=== PATIENT | male | born 1945 | race Caucasian/White ===

== ENCOUNTER 2021-08-26 08:08 | Emergency (ER) | payer MEDICARE, OTHER ==
[~2021-08-26] VITALS: Ht 177.8 cm; Wt 90.7 kg
--- NOTE | 2021-08-26 08:27 | ED Cardiac General ---
History of Present Illness General Stated Complaint: HIGH BP 259/126 Source: patient Exam Limitations: no limitations History of Present Illness Date Seen by Provider: August 26, 2021 Time Seen by Provider: 08:15 Initial Comments The patient to the ER by private conveyance with his and chief complaint that he has been out of his medications for the past 2 weeks metoprolol and atorvastatin. He stopped taking his amlodipine 10 mg daily. He has noticed for the past couple days he felt little tired so he checked his blood pressure and it was high 259/126. He is not having any chest pain nausea shortness of air. He does not have any history of coronary disease or cardiac catheterizations. He just moved here from [place] and does not have a primary care provider yet. He has a history of 2 TIAs. Allergies and Home Medications Allergies Coded Allergies: No Known Drug Allergies (Unverified , 08/26/21) Patient Home Medication List Home Medication List Reviewed: Yes Review of Systems Review of Systems Constitutional: No chills, No diaphoresis EENTM: No Blurred Vision, No Double Vision Respiratory: Denies Cough, Denies Shortness of Air Cardiovascular: Denies Chest Pain, Denies Lightheadedness Gastrointestinal: Denies Abdominal Pain, Denies Constipated, Denies Nausea Genitourinary: Denies Burning, Denies Discharge Musculoskeletal: No back pain, No neck pain Skin: No change in color, No rash All Other Systems Reviewed Negative Unless Noted: Yes Past Jiqmjzj-Wlhnmi-Rjrtku Hx Patient Social History Tobacco Use?: No Use of E-Cig and/or Vaping dev: No Substance use?: No Physical Exam Vital Signs Vital Signs - First Documented 08/26/21 08:15 Temp 36.3 Pulse 73 Resp 16 B/P (MAP) 260/124 (169) Pulse Ox 94 O2 Delivery Room Air Capillary Refill : Height, Weight, BMI Height: '" Weight: lbs. oz. kg; BMI Method: General Appearance: No Apparent Distress, WD/WN HEENT: PERRL/EOMI, TMs Normal, Normal ENT Inspection, Pharynx Normal, Moist Mucous Membranes Neck: Full Range of Motion, Normal Inspection Respiratory: Lungs Clear, Normal Breath Sounds, No Accessory Muscle Use, No Respiratory Distress Cardiovascular: Regular Rate, Rhythm, No Edema, Normal Peripheral Pulses Gastrointestinal: Normal Bowel Sounds, No Organomegaly, Soft Extremity: Normal Capillary Refill, Normal Inspection, No Pedal Edema Neurologic/Psychiatric: Alert, Oriented x3, family practitioner II-XII Norm as Tested Skin: Normal Color, Warm/Dry Progress/Results/Core Measures Results/Orders Lab Results Laboratory Tests Test 08/26/21 08:24 Range/Units White Blood Count 6.5 4.3-11.0 10^3/uL Red Blood Count 4.82 4.30-5.52 10^6/uL Hemoglobin 13.4 13.3-17.7 g/dL Hematocrit 39 L 40-54 % Mean Corpuscular Volume 82 80-99 fL Mean Corpuscular Hemoglobin 28 25-34 pg Mean Corpuscular Hemoglobin Concent 34 32-36 g/dL Red Cell Distribution Width 13.2 10.0-14.5 % Platelet Count 158 130-400 10^3/uL Mean Platelet Volume 10.0 9.0-12.2 fL Immature Granulocyte % (Auto) 0 % Neutrophils (%) (Auto) 56 42-75 % Lymphocytes (%) (Auto) 32 12-44 % Monocytes (%) (Auto) 8 0-12 % Eosinophils (%) (Auto) 3 0-10 % Basophils (%) (Auto) 1 0-10 % Neutrophils # (Auto) 3.6 1.8-7.8 10^3/uL Lymphocytes # (Auto) 2.0 1.0-4.0 10^3/uL Monocytes # (Auto) 0.5 0.0-1.0 10^3/uL Eosinophils # (Auto) 0.2 0.0-0.3 10^3/uL Basophils # (Auto) 0.0 0.0-0.1 10^3/uL Immature Granulocyte # (Auto) 0.0 0.0-0.1 10^3/uL Sodium Level 137 135-145 MMOL/L Potassium Level 4.0 3.6-5.0 MMOL/L Chloride Level 104 98-107 MMOL/L Carbon Dioxide Level 22 21-32 MMOL/L Anion Gap 11 5-14 MMOL/L Blood Urea Nitrogen 15 7-18 MG/DL Creatinine 1.08 0.60-1.30 MG/DL Estimat Glomerular Filtration Rate 70 BUN/Creatinine Ratio 14 Glucose Level 159 H 70-105 MG/DL Calcium Level 9.2 8.5-10.1 MG/DL Corrected Calcium 9.0 8.5-10.1 MG/DL Total Bilirubin 0.5 0.1-1.0 MG/DL Aspartate Amino Transf (AST/SGOT) 43 H 5-34 U/L Alanine Aminotransferase (ALT/SGPT) 55 0-55 U/L Alkaline Phosphatase 128 40-136 U/L Troponin I < 0.028 <0.028 NG/ML Total Protein 8.4 H 6.4-8.2 GM/DL Albumin 4.3 3.2-4.5 GM/DL My Orders Orders - ISABEL LAU Continuous Ekg Monitoring (08/26/21 08:13) Ekg Tracing (08/26/21 08:13) Cbc With Automated Diff (08/26/21 08:23) Comprehensive Metabolic Panel (08/26/21 08:23) Troponin I Olu (08/26/21 08:23) Chest 1 View, Ap/Pa Only (08/26/21 08:23) Labetalol Injection (Normodyne Injection (08/26/21 08:30) Labetalol Injection (Normodyne Injection (08/26/21 08:31) Medications Given in ED Current Medications Medications Dose Ordered Sig/Dana Route Start Time Stop Time Status Last Admin Dose Admin Labetalol HCl 20 mg ONCE ONCE IV 08/26/21 08:30 08/26/21 08:31 DC 08/26/21 08:34 20 MG Vital Signs/I&O 08/26/21 08:15 Temp 36.3 Pulse 73 Resp 16 B/P (MAP) 260/124 (169) Pulse Ox 94 O2 Delivery Room Air Progress Progress Note #1: Time: 08:28 Progress Note Presenting blood pressure is +++/124. We will give him some labetalol 20 mg IV and check some labs including an EKG and troponin as well as a chest x-ray. We will get him set up with refills of his medications as appropriate and have him get some follow-up. Progress Note #2: Time: 09:18 Progress Note Patient blood pressure has significantly improved 165/82. He is still asymptomatic. Were going to let him go home with some prescriptions. Initial ECG Impression Date: August 26, 2021 Initial ECG Impression Time: 08:20 Initial ECG Rate: 74 Initial ECG Rhythm: Normal Sinus Initial ECG Intervals: Normal Initial ECG Impression: Normal Initial ECG Comparisson: No Previous ECG Available Comment Normal sinus rhythm without clinically relevant ST elevation or depression. Diagnostic Imaging Diagonstic Imaging: Xray Plain Films/CT/US/NM/MRI: chest Comments [facility] [place], [place] NAME: ROBERTO ROMANO [facility] REC#: [id number] PT STATUS: REG ER : 1945 PHYSICIAN: ISABEL LAU MD ADMIT DATE: 08/26/21/ER Signed Date of Exam:08/26/21 CHEST 1 VIEW, AP/PA ONLY Indication: Hypertension with headache, dizziness and fatigue Single AP view of chest is obtained. COMPARISON: No previous study is available for comparison at this time. FINDINGS: Heart size and pulmonary vasculature are within normal limits, and the lungs are clear, bilaterally. IMPRESSION: Unremarkable chest. Dictated by: Dictated on workstation # [id number] Dict: 08/26/21 0859 Trans: 08/26/21 09 [id number] Interpreted by: FABIANA CERDA MD Electronically signed by: FABINAA CERDA MD 08/26/21899 Reviewed: Reviewed by De Departure Impression Primary Impression: Asymptomatic hypertensive urgency Disposition: 01 HOME, SELF-CARE Condition: Stable Departure-Patient Inst. Decision time for Depature: 09:21 Referrals: RASHAAD RUTH MD [facility] NO,LOCAL PHYSICIAN (PCP) Primary Care Physician Patient Instructions: High Blood Pressure (DC), LOCAL PHYSICIAN LIST Add. 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 Start taking your metoprolol today. Follow-up with cardiology, Dr. Ruth if you need help managing your blood pressure. Make plans to establish care with a primary care doctor. Return to the ER for chest pain, shortness of air or other worrisome symptoms. Scripts Metoprolol Tartrate (Metoprolol Tartrate) 50 Mg Tablet 50 MG PO BID for 30 Days, #60 TAB 0 Refills Prov: ISABEL LAU 08/26/21 Atorvastatin Calcium (Atorvastatin Calcium) 20 Mg Tablet 20 MG PO HS for 30 Days, #30 TAB 0 Refills Prov: ISABEL LAU 08/26/21 Copy Copies To 1: RASHAAD RUTH MD [facility] ISABEL LAU August 26, 2021 08:27
[2021-08-26] MEDS ORDERED: LABETALOL HCL 20 MG/4 ML VIAL IV ONE (08:30)
[2021-08-26] MEDS ORDERED: LABETALOL HCL 20 MG/4 ML VIAL ONE (08:31)
[2021-08-26 08:32] LABS: BASOPHILS % (AUTO) 1 % (0-10); EOSINOPHILS # (AUTO) 0.2 10^3/uL (0.0-0.3); EOSINOPHILS % (AUTO) 3 % (0-10); HEMATOCRIT 39 % (40-54); HEMOGLOBIN 13.4 g/dL (13.3-17.7); LYMPHOCYTES % (AUTO) 32 % (12-44); MEAN CORPUSCULAR HEMOGLOBIN 28 pg (25-34); MEAN CORPUSCULAR HGB CONC 34 g/dL (32-36); MEAN CORPUSCULAR VOLUME 82 fL (80-99); MONOCYTES # (AUTO) 0.5 10^3/uL (0.0-1.0); MONOCYTES % (AUTO) 8 % (0-12); NEUTROPHILS # (AUTO) 3.6 10^3/uL (1.8-7.8); NEUTROPHILS % (AUTO) 56 % (42-75); PLATELET COUNT 158 10^3/uL (130-400); WHITE BLOOD COUNT 6.5 10^3/uL (4.3-11.0)
[2021-08-26 08:42] LABS: ALBUMIN 4.3 GM/DL (3.2-4.5)
[2021-08-26 08:43] LABS: CHLORIDE 104 MMOL/L (98-107); SODIUM 137 MMOL/L (135-145)
[2021-08-26 08:44] LABS: CALCIUM 9.2 MG/DL (8.5-10.1)
[2021-08-26 08:45] LABS: GLUCOSE 159 MG/DL (70-105); TOTAL PROTEIN 8.4 GM/DL (6.4-8.2)
[2021-08-26 08:46] LABS: CARBON DIOXIDE 22 MMOL/L (21-32)
[2021-08-26 08:47] LABS: BILIRUBIN,TOTAL 0.5 MG/DL (0.1-1.0)
[2021-08-26 08:48] LABS: ALKALINE PHOSPHATASE 128 U/L (40-136)
[2021-08-26 08:49] LABS: CREATININE SERUM 1.08 MG/DL (0.60-1.30); GFR ESTIMATED 70
[2021-08-26 08:50] LABS: BUN/CREATININE RATIO 14
[2021-08-26 08:52] LABS: ALANINE AMINOTRANSFERASE 55 U/L (0-55)
--- NOTE | 2021-08-26 09:01 | Diagnostic Imaging Report ---
Indication: Hypertension with headache, dizziness and fatigue Single AP view of chest is obtained. COMPARISON: No previous study is available for comparison at this time. FINDINGS: Heart size and pulmonary vasculature are within normal limits, and the lungs are clear, bilaterally. IMPRESSION: Unremarkable chest. Dictated by: Dictated on workstation # [id number]
[2021-08-26] MEDS ORDERED: ATOR20TA66 PO (09:24)
[2021-08-26] MEDS ORDERED: METO50TA15 PO (09:24)
[2021-08-26 09:55] VITALS: BP 172/95
== END 2021-08-26 09:55 | disposition home or self-care (01) ==
LOC: ER 08:09
DX: I16.0 Hypertensive urgency (principal); T46.1X6A Underdosing of calcium-channel blockers, initial encounter; T46.6X6A Underdosing of antihyperlipidemic and antiarteriosclerotic drugs, initial encounter; Z86.73 Personal history of transient ischemic attack (TIA), and cerebral infarction without residual deficits; Z91.14 Patient's other noncompliance with medication regimen
CPT/HCPCS: 36415; 71045; 80053; 84484; 85025; 93005

== ENCOUNTER 2021-12-08 09:48 | Emergency (ER) | payer MEDICARE ==
[~2021-12-08] VITALS: Ht 177 cm; Wt 90.2 kg
[~2021-12-08 09:48] MED LIST: ATOR20TA66 PO; METO50TA15 PO
--- NOTE | 2021-12-08 10:50 | ED General ---
General Chief Complaint: COVID19 Suspect/Confirmed Stated Complaint: COVID + Nursing Triage Note: PT PRESENTS TO ED VIA POV FROM HOME WITH COMPLAINTS OF RAPHAEL, FEVER, COUGH X 2 DAYS. PT TESTED POSITIVE OF COVID AT HOME TODAY. Source of Information: Patient Exam Limitations: No Limitations History of Present Illness Date Seen by Provider: Dec 08, 2021 Time Seen by Provider: 10:50 Initial Comments This is a 76-year-old male who presented to the ER via POV with complaints of headache, fever, chills, cough for the past 2 days. States yesterday his symptoms started when he woke, was evaluated at [facility] and had a negative COVID test at that time. They gave him a home test to repeat if his symptoms worsen. Through the night he developed 101 fever and his home COVID test was positive. States that he woke today feeling fine, minor headache. Has not taken anything for his headache at this time. He was in contact with the [facility] and they recommended he go to the ER as he has several comorbidities and higher risk for deterioration with COVID if positive. Patient states that he had COVID in April of this year and received monoclonal infusion at that time. Allergies and Home Medications Allergies Coded Allergies: No Known Drug Allergies (Unverified , 08/26/21) Patient Home Medication List Home Medication List Reviewed: Yes Atorvastatin Calcium (Atorvastatin Calcium) 20 Mg Tablet, 20 MG PO HS Prescribed by: ISABEL LAU on 08/26/21923 Metoprolol Tartrate (Metoprolol Tartrate) 50 Mg Tablet, 50 MG PO BID Prescribed by: ISABEL LAU on 08/26/21923 Review of Systems Review of Systems Constitutional: chills, dizziness, fever EENTM: no symptoms reported Respiratory: cough, phlegm, short of breath (upon awakening ) Cardiovascular: no symptoms reported Gastrointestinal: no symptoms reported Genitourinary: no symptoms reported Musculoskeletal: no symptoms reported Skin: no symptoms reported Psychiatric/Neurological: No Symptoms Reported Hematologic/Lymphatic: No Symptoms Reported Immunological/Allergic: no symptoms reported Past Hnumuzf-Pyiovu-Bkccko Hx Patient Social History Tobacco Use?: No Substance use?: No Alcohol Use?: No Pt feels they are or have been: No Past Medical History Surgery/Hospitalization HX: PMH: HTN Physical Exam Vital Signs Vital Signs - First Documented 12/08/21 10:19 Temp 36.8 Pulse 85 Resp 16 B/P (MAP) 162/95 (117) Pulse Ox 95 Capillary Refill : Less Than 3 Seconds Height, Weight, BMI Height: '" Weight: lbs. oz. kg; 28.00 BMI Method: General Appearance: No Apparent Distress, WD/WN Eyes: Bilateral Eye Normal Inspection, Bilateral Eye PERRL, Bilateral Eye EOMI HEENT: PERRL/EOMI, Normal ENT Inspection, Pharynx Normal Neck: Full Range of Motion Progress/Results/Core Measures Suspected Sepsis SIRS Temperature: Pulse: 85 Respiratory Rate: 16 Blood Pressure 162 /95 Mean: 117 Results/Orders Lab Results Laboratory Tests Test 12/08/21 10:49 Range/Units Influenza Type A (RT-PCR) Not Detected Not Detecte Influenza Type B (RT-PCR) Not Detected Not Detecte SARS-CoV-2 RNA (RT-PCR) Not Detected Not Detecte My Orders Orders - FABRICIO WALL HUMAN RESOURCES EXECUTIVE ASSISTANT Covid 19 Inhouse Test (12/08/21 10:49) Influenza A And B By Pcr (12/08/21 10:49) Chest 1 View, Ap/Pa Only (12/08/21 11:40) Vital Signs/I&O 12/08/21 10:19 Temp 36.8 Pulse 85 Resp 16 B/P (MAP) 162/95 (117) Pulse Ox 95 Capillary Refill : Less Than 3 Seconds Blood Pressure Mean: 117 Departure Impression Primary Impression: Community acquired pneumonia Disposition: 01 HOME, SELF-CARE Condition: Stable Departure-Patient Inst. Decision time for Depature: 11:55 Referrals: ASHOK SHAW MD (PCP/Family) Primary Care Physician Patient Instructions: Pneumonia, Adult ED Add. Discharge Instructions: Plan: 1. Follow up with your primary care provider next week. May take Tylenol as directed per package for fever, chills. 2. May take Albuterol 2 puffs every 4 hours as needed for shortness of air or wheezing. 3. Take antibiotics twice a day and complete full course even if you begin to feel better. 4. Your antibiotics may make you sensitive to the sun and cause you to burn easier, avoid direct sunlight. Wear hat/protection. 5. Return for any new, concerning, or worsening symptoms. All discharge instructions reviewed with patient and/or family. Voiced understanding. Scripts Albuterol Sulfate (VENTOLIN HFA) 1 Puff Puff 2 PUFF INH Q4H for 10 Days, #1 UNIT 0 Refills 1 PUFF = 90 MCG Prov: FABRICIO WALL HUMAN RESOURCES EXECUTIVE ASSISTANT 12/08/21 Doxycycline Hyclate (Doxycycline Hyclate) 100 Mg Tablet 100 MG PO BID for 7 Days, #14 TAB 0 Refills Prov: FABRICIO WALL HUMAN RESOURCES EXECUTIVE ASSISTANT 12/08/21 FABRICIO WALL HUMAN RESOURCES EXECUTIVE ASSISTANT Dec 08, 2021 10:50
--- NOTE | 2021-12-08 12:23 | Diagnostic Imaging Report ---
INDICATION: Cough. TIME OF EXAM: 11:59 AM Correlation is made with prior chest 08/26/2021. Heart size normal. There is some patchy infiltrate right mid to lower lung field consistent with pneumonia. Left lung is clear. There is no effusion or pneumothorax. IMPRESSION: Patchy right basilar pneumonia. Dictated by: Dictated on workstation # [id number]
[2021-12-08] MEDS ORDERED: DOXY100T2 PO (12:38)
[2021-12-08] MEDS ORDERED: RT-ALBUINH INH (12:43)
[2021-12-08] MEDS ORDERED: LIDOCAINE 1% INJ 20 ML VIAL INJ ONE (12:45)
[2021-12-08] MEDS ORDERED: cefTRIAXone 1,000 MG VIAL IM ONE (12:45)
[2021-12-08 13:03] VITALS: BP 130/76
== END 2021-12-08 13:03 | disposition home or self-care (01) ==
LOC: EDUNIT# 09:48 → ER 09:50
DX: J18.9 Pneumonia, unspecified organism (principal); Z20.822 Contact with and (suspected) exposure to COVID-19; Z28.310 Unvaccinated for COVID-19
CPT/HCPCS: 71045; 87636

== ENCOUNTER → 2022-01-27 | Outpatient (CLI) | payer MEDICARE ==
[~2022-01-27] MED LIST changes: +DOXY100T2 PO; +RT-ALBUINH INH
== END ==
LOC: PREOP 13:25
PROVIDERS: ATTEND Specialist
DX: Z01.818 Encounter for other preprocedural examination (principal)

== ENCOUNTER → 2022-02-10 | Outpatient (CLI) | payer MEDICARE | LOC: PREOP 11:50 | PROVIDERS: ATTEND Specialist | DX: Z01.818 Encounter for other preprocedural examination (principal) ==

== ENCOUNTER 2022-04-11 18:46 | Emergency (ER) | payer MEDICARE ==
[~2022-04-11] VITALS: Ht 177 cm; Wt 86.0 kg
[2022-04-11 19:52] LABS: BASOPHILS % (AUTO) 0 % (0-10); EOSINOPHILS # (AUTO) 0.2 10^3/uL (0.0-0.3); EOSINOPHILS % (AUTO) 3 % (0-10); HEMATOCRIT 38 % (40-54); HEMOGLOBIN 12.5 g/dL (13.3-17.7); LYMPHOCYTES # (AUTO) 1.5 10^3/uL (1.0-4.0); LYMPHOCYTES % (AUTO) 22 % (12-44); MEAN CORPUSCULAR HEMOGLOBIN 27 pg (25-34); MEAN CORPUSCULAR HGB CONC 33 g/dL (32-36); MEAN CORPUSCULAR VOLUME 81 fL (80-99); MEAN PLATELET VOLUME 9.7 fL (9.0-12.2); MONOCYTES # (AUTO) 0.5 10^3/uL (0.0-1.0); MONOCYTES % (AUTO) 7 % (0-12); NEUTROPHILS # (AUTO) 4.7 10^3/uL (1.8-7.8); NEUTROPHILS % (AUTO) 68 % (42-75); PLATELET COUNT 182 10^3/uL (130-400); WHITE BLOOD COUNT 6.9 10^3/uL (4.3-11.0)
[2022-04-11 20:03] LABS: FIBRIN DEGRADATION PRODUCTS 1.08 UG/ML (0.00-0.49); INR 0.9 (0.8-1.4); PROTHROMBIN TIME PATIENT 12.9 SEC (12.2-14.7)
[2022-04-11 20:07] LABS: ALBUMIN 4.4 GM/DL (3.2-4.5); BILIRUBIN,TOTAL 0.3 MG/DL (0.1-1.0); CALCIUM 9.3 MG/DL (8.5-10.1); CREATININE SERUM 1.25 MG/DL (0.60-1.30); MAGNESIUM 2.1 MG/DL (1.6-2.4); POTASSIUM 3.6 MMOL/L (3.6-5.0)
[2022-04-11 20:13] LABS: CREATINE KINASE MB 2.8 NG/ML (<6.6)
[2022-04-11 20:29] LABS: ERYTHROCYTE SEDIMENTATION RATE 36 MM/HR (0-30)
--- NOTE | 2022-04-11 20:31 | Diagnostic Imaging Report ---
EXAMINATION: Chest 1 view HISTORY: Dyspnea. Cough COMPARISON: 12/08/2021 FINDINGS: Heart size and pulmonary vasculature are normal. There are mild interstitial opacities within the lower lungs. No pleural effusion or pneumothorax. Degenerative changes of the thoracic spine. Osseous structures are otherwise intact. IMPRESSION: 1. Mild interstitial opacities within the lower lungs which can be ween with atelectasis, pulmonary edema, or atypical infection. Dictated by: Dictated on workstation # [id number]
--- NOTE | 2022-04-11 20:34 | ED General ---
General Chief Complaint: Cardiac/General Problems Stated Complaint: HIGH BP 179/100 - R EYE PAIN/SWELLING - COUGH - RAPHAEL Nursing Triage Note: PT BROUGHT TO ED FOR C/O RT EYE SWELLING AND HIGH BP. PER PT DENIES INJURY TO EYE. PT REPORTS HAVING HEADACHES FOR A COUPLE OF MONTHS. TODAY'S BP AT HOME WAS 179/100. PT AND SPOUSE AMB. TO ROOM 07. Source of Information: Patient (LETS DO ALL TALKING), Spouse ( DOES ALL TALKING FOR PT) History of Present Illness Date Seen by Provider: Apr 11, 2022 Time Seen by Provider: 19:35 Initial Comments PT ARRIVES VIA POV FROM HOME WITH PT WITH MULTIPLE COMPLAINTS. PCP: [facility] SODIUM METHYLATE OPERATOR: DR. REDDY Allergies and Home Medications Allergies Coded Allergies: No Known Drug Allergies (Unverified , 08/26/21) Patient Home Medication List Albuterol Sulfate (Ventolin Hfa) 1 Puff Puff, 2 PUFF INH Q4H Prescribed by: FABRICIO WALL on 12/08/21 1243 Atorvastatin Calcium (Atorvastatin Calcium) 20 Mg Tablet, 20 MG PO HS Prescribed by: ISABEL LAU on 08/26/21 09 Azithromycin (Zithromax) 500 Mg Tablet, 500 MG PO DAILY Prescribed by: LAYO MARIE on 04/11/222050 Cefdinir (Cefdinir) 300 Mg Capsule, 300 MG PO BID Prescribed by: LAYO MARIE on 04/11/222050 Doxycycline Hyclate (Doxycycline Hyclate) 100 Mg Tablet, 100 MG PO BID Prescribed by: FABRICIO WALL on 12/08/21 1238 Metoprolol Tartrate (Metoprolol Tartrate) 50 Mg Tablet, 50 MG PO BID Prescribed by: ISABEL LAU on 08/26/21923 Past Amnodyh-Ceykch-Gqpgcl Hx Patient Social History Tobacco Use?: No Substance use?: No Alcohol Use?: No Pt feels they are or have been: No Past Medical History Surgery/Hospitalization HX: PMH: HTN, DM2 SURGERY;2011 FATTY TUMORS REMOVED FROM BACK Physical Exam Vital Signs Vital Signs - First Documented 04/11/22 19:15 Temp 35.9 Pulse 63 Resp 18 B/P (MAP) 154/82 (106) Pulse Ox 95 O2 Delivery Room Air Capillary Refill : Less Than 3 Seconds Height, Weight, BMI Height: '" Weight: lbs. oz. kg; 27.00 BMI Method: Progress/Results/Core Measures Suspected Sepsis SIRS Temperature: Pulse: 63 Respiratory Rate: 18 Laboratory Tests 04/11/22 19:25: White Blood Count 6.9 Blood Pressure 154 /82 Mean: 106 Laboratory Tests 04/11/22 19:25: Creatinine 1.25, INR Comment 0.9, Platelet Count 182, Total Bilirubin 0.3 Results/Orders Lab Results Laboratory Tests Test 04/11/22 19:25 04/11/22 19:30 04/11/22 20:43 Range/Units White Blood Count 6.9 4.3-11.0 10^3/uL Red Blood Count 4.61 4.30-5.52 10^6/uL Hemoglobin 12.5 L 13.3-17.7 g/dL Hematocrit 38 L 40-54 % Mean Corpuscular Volume 81 80-99 fL Mean Corpuscular Hemoglobin 27 25-34 pg Mean Corpuscular Hemoglobin Concent 33 32-36 g/dL Red Cell Distribution Width 13.6 10.0-14.5 % Platelet Count 182 130-400 10^3/uL Mean Platelet Volume 9.7 9.0-12.2 fL Immature Granulocyte % (Auto) 0 % Neutrophils (%) (Auto) 68 42-75 % Lymphocytes (%) (Auto) 22 12-44 % Monocytes (%) (Auto) 7 0-12 % Eosinophils (%) (Auto) 3 0-10 % Basophils (%) (Auto) 0 0-10 % Neutrophils # (Auto) 4.7 1.8-7.8 10^3/uL Lymphocytes # (Auto) 1.5 1.0-4.0 10^3/uL Monocytes # (Auto) 0.5 0.0-1.0 10^3/uL Eosinophils # (Auto) 0.2 0.0-0.3 10^3/uL Basophils # (Auto) 0.0 0.0-0.1 10^3/uL Immature Granulocyte # (Auto) 0.0 0.0-0.1 10^3/uL Erythrocyte Sedimentation Rate 36 H 0-30 MM/HR Prothrombin Time 12.9 12.2-14.7 SEC INR Comment 0.9 0.8-1.4 Activated Partial Thromboplast Time 32 24-35 SEC D-Dimer 1.08 H 0.00-0.49 UG/ML Sodium Level 136 135-145 MMOL/L Potassium Level 3.6 3.6-5.0 MMOL/L Chloride Level 102 98-107 MMOL/L Carbon Dioxide Level 23 21-32 MMOL/L Anion Gap 11 5-14 MMOL/L Blood Urea Nitrogen 14 7-18 MG/DL Creatinine 1.25 0.60-1.30 MG/DL Estimat Glomerular Filtration Rate 59 BUN/Creatinine Ratio 11 Glucose Level 114 H 70-105 MG/DL Calcium Level 9.3 8.5-10.1 MG/DL Corrected Calcium 9.0 8.5-10.1 MG/DL Magnesium Level 2.1 1.6-2.4 MG/DL Total Bilirubin 0.3 0.1-1.0 MG/DL Aspartate Amino Transf (AST/SGOT) 28 5-34 U/L Alanine Aminotransferase (ALT/SGPT) 32 0-55 U/L Alkaline Phosphatase 127 40-136 U/L Total Creatine Kinase 101 30-200 U/L Creatine Kinase MB 2.8 <6.6 NG/ML Myoglobin 74.3 10.0-92.0 NG/ML C-Reactive Protein High Sensitivity 0.18 0.00-0.50 MG/DL B-Type Natriuretic Peptide 26.5 <100.0 PG/ML Total Protein 9.0 H 6.4-8.2 GM/DL Albumin 4.4 3.2-4.5 GM/DL Influenza Type A (RT-PCR) Not Detected Not Detecte Influenza Type B (RT-PCR) Not Detected Not Detecte SARS-CoV-2 RNA (RT-PCR) Negative Not Detecte Urine Color YELLOW Urine Clarity CLEAR Urine pH 7.0 5-9 Urine Specific [place] 1.020 1.016-1.022 Urine Protein NEGATIVE NEGATIVE Urine Glucose (UA) NEGATIVE NEGATIVE Urine Ketones NEGATIVE NEGATIVE Urine Nitrite NEGATIVE NEGATIVE Urine Bilirubin NEGATIVE NEGATIVE Urine Urobilinogen 1.0 < = 1.0 MG/DL Urine Leukocyte Esterase NEGATIVE NEGATIVE Urine RBC (Auto) NEGATIVE NEGATIVE Urine RBC RARE /HPF Urine WBC RARE /HPF Urine Squamous Epithelial Cells RARE /HPF Urine Crystals NONE /LPF Urine Bacteria TRACE /HPF Urine Casts NONE /LPF Urine Mucus NEGATIVE /LPF Urine Culture Indicated NO My Orders Orders - LAYO MARIE DO Ed Iv/Invasive Line Start (04/11/22 19:37) Ekg Tracing (04/11/22 19:37) Monitor-Rhythm Ecg Trace Only (04/11/22 19:37) Bnp Olu (04/11/22 19:37) Cbc With Automated Diff (04/11/22 19:37) Comprehensive Metabolic Panel (04/11/22 19:37) Creatine Kinase (04/11/22 19:37) Creatine Kinase Mb (04/11/22 19:37) Hs C Reactive Protein (04/11/22 19:37) Fibrin Degradation Products (04/11/22 19:37) Magnesium (04/11/22 19:37) Protime With Inr (04/11/22:37) Partial Thromboplastin Time (04/11/22 19:37) Ua Culture If Indicated (04/11/22 19:37) Erythrocyte Sedimentation Rate (04/11/22 19:37) Myoglobin Serum (04/11/22 19:37) Ct Maxillofacial Wo (04/11/22 19:37) Ct Head Wo-R/O Stroke (04/11/22 19:37) Chest 1 View, Ap/Pa Only (04/11/22 19:37) Covid 19 Inhouse Test (04/11/22 19:37) Influenza A And B By Pcr (04/11/22 19:37) Isolation Central Supply Req (04/11/22 19:37) Troponin I Olu (04/11/22 20:32) Ceftriaxone 1 Gm Pre-Mix (Rocephin 1 Gm (04/11/22 20:45) Azithromycin Tablet (Zithromax Tablet) (04/11/22 20:45) Rx-Ofloxacin 0.3% Ophth Soln (Rx-Ocuflox (04/12/22 00:00) Procalcitonin (Pct) (04/11/22 20:53) Blood Culture (04/11/22 20:53) Medications Given in ED Current Medications Medications Dose Ordered Sig/Dana Route Start Time Stop Time Status Last Admin Dose Admin Azithromycin 500 mg ONCE ONCE PO 04/11/22 20:45 04/11/22 20:47 DC 04/11/22 21:00 500 MG Ceftriaxone Sodium/Dextrose 50 ml @ 100 mls/hr ONCE ONCE IV 04/11/22 20:45 04/11/22 21:14 DC 04/11/22 21:01 100 MLS/HR Vital Signs/I&O 04/11/22 19:15 Temp 35.9 Pulse 63 Resp 18 B/P (MAP) 154/82 (106) Pulse Ox 95 O2 Delivery Room Air Capillary Refill : Less Than 3 Seconds Blood Pressure Mean: 106 Diagnostic Imaging Comments CXR--PER RADIOLOGIST REPORT AT 2032 FINDINGS: Heart size and pulmonary vasculature are normal. There are mild interstitial opacities within the lower lungs. No pleural effusion or pneumothorax. Degenerative changes of the thoracic spine. Osseous structures are otherwise intact. IMPRESSION: 1. Mild interstitial opacities within the lower lungs which can be ween with atelectasis, pulmonary edema, or atypical infection. CT SCANS--PER RADIOLOGIST REPORTS AT 2042 CT HEAD-- FINDINGS: The ventricles and sulci are normal. No abnormal attenuation of brain parenchyma is present. No acute intracranial hemorrhage or abnormal extra-axial fluid collections are present. Calcification of the intracranial ICAs. No hyperdense vessel. The calvarium is intact. The mastoid air cells are clear. The visualized paranasal sinuses are clear. The orbits are normal. IMPRESSION: 1. No acute intracranial abnormality. CT MAXILLOFACIALS-- FINDINGS: Mild soft tissue swelling within the right preseptal orbital soft tissues. No loculated fluid collection. Globes are intact. Paranasal sinuses are normal. Mastoid air cells are clear. No fracture is seen in the face. The nasal bones are normal. Mandible and maxillae are normal. Zygomatic arches are normal. Pterygoid plates are normal. No soft tissue abnormality is seen. Limited views of the brain are normal. IMPRESSION: 1. Mild soft tissue swelling within the right preseptal soft tissues. 2. No other acute abnormality within the face. CT MAXILLOFACIALS-- Reviewed: Reviewed by Me Departure Impression Primary Impression: Community acquired pneumonia Additional Impressions: Periorbital cellulitis of right eye Right conjunctivitis Disposition: HOME, SELF-CARE Condition: Stable Departure-Patient Inst. Decision time for Depature: 20:49 Referrals: ASHOK SHAW MD (PCP/Family) Primary Care Physician ANNE REDDY OD Patient Instructions: Conjunctivitis ([place]), Pneumonia in Adults, Preseptal Cellulitis ED Add. Discharge Instructions: HOME, REST LOTS OF CLEAR LIQUIDS TYLENOL AND MOTRIN NEEDED FOR PAIN OVER THE COUNTER MUCINEX DM FOR COUGH AND CONGESTION USE EYE DROPS--2 DROPS TO AFFECTED EYE 4 TIMES A DAY DO NOT RUB EYE FOLLOW UP WITH DR. REDDY, EYE DR, THIS WEEK FOR FURTHER CARE--CALL IN THE MORNING TO SCHEDULE FOLLOW UP APPOINTMENT FOLLOW UP WITH [place]. SHAW/ [facility] [place]--CALL IN THE MORNING TO SCHEDULE AN APPOINTMENT All discharge instructions reviewed with patient and/or family. Voiced understanding. Scripts Azithromycin (Zithromax) 500 Mg Tablet 500 MG PO DAILY for 5 Days, #5 TAB Prov: LAYO MARIE DO 04/11/22 Cefdinir (Cefdinir) 300 Mg Capsule 300 MG PO BID, #20 CAP Prov: LAYO MARIE DO 04/11/22 LAYO MARIE DO Apr 11, 2022 20:34
--- NOTE | 2022-04-11 20:37 | Diagnostic Imaging Report ---
EXAMINATION: CT head without contrast. TECHNIQUE: Multiple contiguous axial images were obtained through the brain without the use of intravenous contrast. All CT scans use one or more of the following dose optimizing techniques: automated exposure control, MA and/or KvP adjustment based on patient size and exam type or iterative reconstruction. HISTORY: Right eye swelling, hypertension COMPARISON: None available. FINDINGS: The ventricles and sulci are normal. No abnormal attenuation of brain parenchyma is present. No acute intracranial hemorrhage or abnormal extra-axial fluid collections are present. Calcification of the intracranial ICAs. No hyperdense vessel. The calvarium is intact. The mastoid air cells are clear. The visualized paranasal sinuses are clear. The orbits are normal. IMPRESSION: 1. No acute intracranial abnormality. Dictated by: Dictated on workstation # [id number]
--- NOTE | 2022-04-11 20:41 | Diagnostic Imaging Report ---
EXAMINATION: CT face without contrast. TECHNIQUE: Multiple contiguous axial images were obtained through the face without the use of intravenous contrast. Sagittal and coronal reformations through the cervical spine were then performed. All CT scans use one or more of the following dose optimizing techniques: automated exposure control, MA and/or KvP adjustment based on patient size and exam type or iterative reconstruction. HISTORY: Right eye swelling and headaches COMPARISON: None available. FINDINGS: Mild soft tissue swelling within the right preseptal orbital soft tissues. No loculated fluid collection. Globes are intact. Paranasal sinuses are normal. Mastoid air cells are clear. No fracture is seen in the face. The nasal bones are normal. Mandible and maxillae are normal. Zygomatic arches are normal. Pterygoid plates are normal. No soft tissue abnormality is seen. Limited views of the brain are normal. IMPRESSION: 1. Mild soft tissue swelling within the right preseptal soft tissues. 2. No other acute abnormality within the face. Dictated by: Dictated on workstation # [id number]
[2022-04-11] MEDS ORDERED: AZITHROMYCIN 250 MG TAB (ZITHROMAX) PO ONE (20:45)
[2022-04-11] MEDS ORDERED: cefTRIAXone 1 GM PRE-MIX 50 ML IV ONE (20:45)
[2022-04-11 20:51] LABS: BILIRUBIN,URINE NEGATIVE (NEGATIVE); CLARITY,URINE CLEAR; COLOR,URINE YELLOW; GLUCOSE, URINE (UA) NEGATIVE (NEGATIVE); KETONES,URINE NEGATIVE (NEGATIVE); LEUKOCYTE ESTERASE ,URINE NEGATIVE (NEGATIVE); NITRITE,URINE NEGATIVE (NEGATIVE); PROTEIN,URINE NEGATIVE (NEGATIVE)
[2022-04-11] MEDS ORDERED: CEFD300C3 PO (20:51)
[2022-04-11] MEDS ORDERED: AZIT500T PO (20:51)
[2022-04-11 21:13] LABS: BACTERIA,URINE TRACE /HPF; RBC,URINE RARE /HPF; SQUAMOUS EPITHELIAL CELL,UR RARE /HPF; WBC,URINE RARE /HPF
[2022-04-11] MEDS ORDERED: RX-OFLOXACIN 0.3% OPHTH SOLN 5 ML ONE (21:57)
[2022-04-11 22:09] VITALS: BP 176/86
[2022-04-12] MEDS ORDERED: RX-OFLOXACIN 0.3% OPHTH SOLN 5 ML OP SCH
== END 2022-04-11 22:09 | disposition home or self-care (01) ==
LOC: ER 18:46 → EDUNIT# 18:46 → ER 22:09
DX: J18.9 Pneumonia, unspecified organism (principal); L03.213 Periorbital cellulitis; H10.9 Unspecified conjunctivitis; Z28.310 Unvaccinated for COVID-19; Z20.822 Contact with and (suspected) exposure to COVID-19
CPT/HCPCS: 36415; 70450; 70486; 71045; 80053; 81000; 82550; 82553; 83735; 83874; 83880; 84145; 84484; 85025; 85379; 85610; 85652; 85730; 86141; 87040; 87636; 93005; 93041

== ENCOUNTER 2022-06-21 17:08 | Emergency (ER) | payer MEDICARE ==
[~2022-06-21] VITALS: Ht 178 cm; Wt 86.0 kg
[~2022-06-21 17:08] MED LIST changes: +AZIT500T PO; +CEFD300C3 PO
[2022-06-21] MEDS ORDERED: NS IV 1000 ML 1,000 ML IV SCH (18:00)
[2022-06-21] MEDS ORDERED: cefTRIAXone 1 GM PRE-MIX 50 ML IV ONE (18:00)
[2022-06-21 18:08] LABS: BASOPHILS % (AUTO) 0 % (0-10); EOSINOPHILS # (AUTO) 0.2 10^3/uL (0.0-0.3); EOSINOPHILS % (AUTO) 1 % (0-10); HEMATOCRIT 36 % (40-54); LYMPHOCYTES # (AUTO) 1.8 10^3/uL (1.0-4.0); LYMPHOCYTES % (AUTO) 16 % (12-44); MEAN CORPUSCULAR HEMOGLOBIN 27 pg (25-34); MEAN CORPUSCULAR HGB CONC 34 g/dL (32-36); MEAN CORPUSCULAR VOLUME 80 fL (80-99); MEAN PLATELET VOLUME 10.1 fL (9.0-12.2); MONOCYTES # (AUTO) 0.7 10^3/uL (0.0-1.0); MONOCYTES % (AUTO) 6 % (0-12); NEUTROPHILS # (AUTO) 8.6 10^3/uL (1.8-7.8); NEUTROPHILS % (AUTO) 76 % (42-75); PLATELET COUNT 212 10^3/uL (130-400); WHITE BLOOD COUNT 11.3 10^3/uL (4.3-11.0)
[2022-06-21 18:10] LABS: ALBUMIN 3.8 GM/DL (3.2-4.5)
[2022-06-21 18:11] LABS: CHLORIDE 105 MMOL/L (98-107); POTASSIUM 4.5 MMOL/L (3.6-5.0); SODIUM 137 MMOL/L (135-145)
[2022-06-21 18:12] LABS: CALCIUM 8.4 MG/DL (8.5-10.1)
[2022-06-21 18:13] LABS: GLUCOSE 102 MG/DL (70-105); TOTAL PROTEIN 7.3 GM/DL (6.4-8.2)
[2022-06-21 18:14] LABS: CARBON DIOXIDE 23 MMOL/L (21-32); PROTHROMBIN TIME PATIENT 13.4 SEC (12.2-14.7)
[2022-06-21 18:15] LABS: BILIRUBIN,TOTAL 0.5 MG/DL (0.1-1.0)
--- NOTE | 2022-06-21 18:16 | ED Cough/URI ---
General Chief Complaint: Fever-Adult/Adol Stated Complaint: COUGH/CHEST PAIN/FEVER/DIZZINESS/SOA Nursing Triage Note: Patient ambulatory to room 10 w c/o fever, cough, dizziness, chest pain, and short of breath. x2 days but cough has been lingering since last summer. Pt was prescribed antibiotics, but he felt like the pneumonia never went away after finishing the round of abx Source: patient Exam Limitations: no limitations History of Present Illness Date Seen by Provider: Jun 21, 2022 Time Seen by Provider: 18:14 Initial Comments Patient is a 76-year-old male who presents ED with fever, cough, dizziness, chest pain and shortness of breath. Patient states he has been coughing over the past year. Reports pneumonia back in February and November. He reports this lingering cough. States he started developing left-sided chest pain with deep inspiration and coughing 2 days ago. Patient reports associated dizziness, lightheadedness with his cough. He states this feels very similar to when he he had pneumonia. Reports history of stroke, hypertension, COPD. Does use an inhaler at home. Previous stroke with right-sided deficits according to patient. Reports a low-grade temperature at home of 100. Took 2 Tylenol right before arrival. Denies of any nausea, vomiting, diarrhea, abdominal pain, back pain, headache, visual changes, sore throat or ear pain. History of COVID. Allergies and Home Medications Allergies Coded Allergies: No Known Drug Allergies (Unverified , 08/26/21) Patient Home Medication List Home Medication List Reviewed: Yes Albuterol Sulfate (Ventolin Hfa) 1 Puff Puff, 2 PUFF INH Q4H Prescribed by: FABRICIO WALL on 12/08/21 1243 Albuterol Sulfate (Ventolin Hfa) 1 Puff Puff, 2 PUFF INH Q4H PRN for SHORTNESS OF BREATH Prescribed by: LIS FRENCH on 06/21/221955 Atorvastatin Calcium (Atorvastatin Calcium) 20 Mg Tablet, 20 MG PO HS Prescribed by: ISABEL LAU on 08/26/21923 Azithromycin (Zithromax) 500 Mg Tablet, 500 MG PO DAILY Prescribed by: LAYO MARIE on 04/11/222050 Azithromycin (Azithromycin) 250 Mg Tablet, 250 MG PO UD Prescribed by: LIS FRENCH on 06/21/221955 Cefdinir (Cefdinir) 300 Mg Capsule, 300 MG PO BID Prescribed by: LAYO MARIE on 04/11/222050 Doxycycline Hyclate (Doxycycline Hyclate) 100 Mg Tablet, 100 MG PO BID Prescribed by: FABRICIO WALL on 12/08/21 1238 Metoprolol Tartrate (Metoprolol Tartrate) 50 Mg Tablet, 50 MG PO BID Prescribed by: ISABEL LAU on 08/26/21 0924 Prednisone (Prednisone) 20 Mg Tab, 40 MG PO DAILY Prescribed by: LIS FRENCH on 06/21/221955 Review of Systems Review of Systems Constitutional: No chills; dizziness, fever, malaise, weakness EENTM: No ear discharge, No ear pain, No hoarseness, No mouth pain, No throat pain, No throat swelling Respiratory: cough, short of breath Cardiovascular: chest pain Gastrointestinal: No abdominal pain, No diarrhea, No nausea, No vomiting Genitourinary: No decreased output, No discharge Musculoskeletal: No back pain, No joint pain Skin: No change in color, No change in hair/nails All Other Systems Reviewed Negative Unless Noted: Yes Past Llkfztm-Vkgrry-Mbfwkd Hx Patient Social History Tobacco Use?: No Substance use?: No Alcohol Use?: No Immunizations Up To Date COVID19 Vaccine Bundle Wrapper: modernshonda Past Medical History Surgery/Hospitalization HX: PMH: HTN, DM2 SURGERY;2011 FATTY TUMORS REMOVED FROM BACK Surgeries: Yes (LIPOMAS REMOVED FROM BACK) Appendectomy Respiratory: Yes COPD Cardiac: Yes High Cholesterol, Hypertension Neurological: Yes Dementia Genitourinary: No Gastrointestinal: No Musculoskeletal: Yes Chronic Back Pain Endocrine: Yes Diabetes, Non-Insulin dep HEENT: No Cancer: No Psychosocial: No Integumentary: No Blood Disorders: No Physical Exam Vital Signs - First Documented 06/21/22 06/21/22 17:35 20:04 Temp 37.9 Pulse 87 Resp 30 B/P (MAP) 187/91 Pulse Ox 94 O2 Delivery Room Air Capillary Refill : Less Than 3 Seconds Height: '" Weight: lbs. oz. kg; 27.00 BMI Method: General Appearance: WD/WN, no apparent distress Eyes: Bilateral Eye Normal Inspection, Bilateral Eye PERRL, Bilateral Eye EOMI HEENT: PERRL/EOMI, normal ENT inspection, TMs normal, pharynx normal Neck: non-tender, full range of motion, supple Respiratory: chest non-tender, lungs clear, normal breath sounds Cardiovascular: regular rate, rhythm, no edema, no gallop Gastrointestinal: normal bowel sounds, non tender, soft Extremities: normal range of motion, non-tender, normal inspection, no pedal edema Neurologic/Psychiatric: mottle lay up operator II-XII nml as tested, no motor/sensory deficits, alert, normal mood/affect, oriented x 3 Skin: normal color, warm/dry Focused Exam Lactate Level 06/21/22 18:03: Lactic Acid Level 1.31 Lactic Acid Level Laboratory Tests Test 06/21/22 18:03 Lactic Acid Level 1.31 MMOL/L (0.50-2.00) Progress/Results/Core Measures Suspected Sepsis SIRS Temperature: Pulse: 87 Respiratory Rate: 30 Laboratory Tests 06/21/22 18:03: White Blood Count 11.3H Blood Pressure / Mean: 06/21/22 18:03: Lactic Acid Level 1.31 Laboratory Tests 06/21/22 18:03: Creatinine 0.91, INR Comment 1.0, Platelet Count 212, Total Bilirubin 0.5 Results/Orders Lab Results Laboratory Tests Test 06/21/22 18:03 06/21/22 18:35 Range/Units White Blood Count 11.3 H 4.3-11.0 10^3/uL Red Blood Count 4.46 4.30-5.52 10^6/uL Hemoglobin 12.0 L 13.3-17.7 g/dL Hematocrit 36 L 40-54 % Mean Corpuscular Volume 80 80-99 fL Mean Corpuscular Hemoglobin 27 25-34 pg Mean Corpuscular Hemoglobin Concent 34 32-36 g/dL Red Cell Distribution Width 13.6 10.0-14.5 % Platelet Count 212 130-400 10^3/uL Mean Platelet Volume 10.1 9.0-12.2 fL Immature Granulocyte % (Auto) 0 % Neutrophils (%) (Auto) 76 H 42-75 % Lymphocytes (%) (Auto) 16 12-44 % Monocytes (%) (Auto) 6 0-12 % Eosinophils (%) (Auto) 1 0-10 % Basophils (%) (Auto) 0 0-10 % Neutrophils # (Auto) 8.6 H 1.8-7.8 10^3/uL Lymphocytes # (Auto) 1.8 1.0-4.0 10^3/uL Monocytes # (Auto) 0.7 0.0-1.0 10^3/uL Eosinophils # (Auto) 0.2 0.0-0.3 10^3/uL Basophils # (Auto) 0.0 0.0-0.1 10^3/uL Immature Granulocyte # (Auto) 0.0 0.0-0.1 10^3/uL Prothrombin Time 13.4 12.2-14.7 SEC INR Comment 1.0 0.8-1.4 Activated Partial Thromboplast Time 29 24-35 SEC Sodium Level 137 135-145 MMOL/L Potassium Level 4.5 3.6-5.0 MMOL/L Chloride Level 105 98-107 MMOL/L Carbon Dioxide Level 23 21-32 MMOL/L Anion Gap 9 5-14 MMOL/L Blood Urea Nitrogen 10 7-18 MG/DL Creatinine 0.91 0.60-1.30 MG/DL Estimat Glomerular Filtration Rate 86 BUN/Creatinine Ratio 11 Glucose Level 102 70-105 MG/DL Lactic Acid Level 1.31 0.50-2.00 MMOL/L Calcium Level 8.4 L 8.5-10.1 MG/DL Corrected Calcium 8.6 8.5-10.1 MG/DL Total Bilirubin 0.5 0.1-1.0 MG/DL Aspartate Amino Transf (AST/SGOT) 14 5-34 U/L Alanine Aminotransferase (ALT/SGPT) 22 0-55 U/L Alkaline Phosphatase 72 40-136 U/L Troponin I < 0.028 <0.028 NG/ML B-Type Natriuretic Peptide 31.2 <100.0 PG/ML Total Protein 7.3 6.4-8.2 GM/DL Albumin 3.8 3.2-4.5 GM/DL Influenza Type A (RT-PCR) Not Detected Not Detecte Influenza Type B (RT-PCR) Not Detected Not Detecte SARS-CoV-2 RNA (RT-PCR) Not Detected Not Detecte Urine Color YELLOW Urine Clarity CLEAR Urine pH 7.0 5-9 Urine Specific Wallace 1.015 L 1.016-1.022 Urine Protein 1+ H NEGATIVE Urine Glucose (UA) NEGATIVE NEGATIVE Urine Ketones NEGATIVE NEGATIVE Urine Nitrite NEGATIVE NEGATIVE Urine Bilirubin NEGATIVE NEGATIVE Urine Urobilinogen 0.2 < = 1.0 MG/DL Urine Leukocyte Esterase NEGATIVE NEGATIVE Urine RBC (Auto) TRACE-I H NEGATIVE Urine RBC 2-5 H /HPF Urine WBC RARE /HPF Urine Squamous Epithelial Cells RARE /HPF Urine Crystals NONE /LPF Urine Bacteria TRACE /HPF Urine Casts NONE /LPF Urine Mucus NEGATIVE /LPF Urine Culture Indicated CULTURE PENDING My Orders Orders - CASSIDY HE PA Cbc With Automated Diff (06/21/22 17:59) Comprehensive Metabolic Panel (06/21/22 17:59) Blood Culture (06/21/22 17:59) Sputum Culture (06/21/22 17:59) Urinalysis (06/21/22 17:59) Urine Culture (06/21/22 17:59) Protime With Inr (06/21/22 17:59) Partial Thromboplastin Time (06/21/22 17:59) Chest 1 View, Ap/Pa Only (06/21/22 17:59) Ed Iv/Invasive Line Start (06/21/22 17:59) Troponin I [place] (06/21/22 17:59) Vital Signs Adult Sepsis Patie Q15M (06/21/22 17:59) O2 (06/21/22 17:59) Lactic Acid Analyzer (06/21/22 17:59) Influenza A And B By Pcr (06/21/22 17:59) Ns Iv 1000 Ml (Sodium Chloride 0.9%) (06/21/22 18:00) Ceftriaxone 1 Gm Pre-Mix (Rocephin 1 Gm (06/21/22 18:00) Covid 19 Inhouse Test (06/21/22 17:59) Bnp [place] (06/21/22 17:59) Methylprednisolone Sod Succ (Solu-Medrol (06/21/22 19:15) Albuterol/Ipra Inhalation Soln (Duoneb I (06/21/22 19:15) Svn Small Volume Nebulizer (06/21/22 19:05) Methylprednisolone Sod Succ (Solu-Medrol (06/21/22 19:12) Medications Given in ED Current Medications Medications Dose Ordered Sig/Dana Route Start Time Stop Time Status Last Admin Dose Admin Albuterol/ Ipratropium 3 ml ONCE ONCE INH 06/21/22 19:15 06/21/22 19:16 DC 06/21/22 19:21 3 ML Ceftriaxone Sodium/Dextrose 50 ml @ 100 mls/hr ONCE ONCE IV 06/21/22 18:00 06/21/22 18:29 DC 06/21/22 18:32 100 MLS/HR Methylprednisolone Sodium Succinate 125 mg ONCE ONCE IVP 06/21/22 19:15 06/21/22 19:17 DC 06/21/22 19:14 125 MG Vital Signs/I&O 06/21/22 06/21/22 06/21/22 17:35 19:24 20:04 Temp 37.9 37.9 Pulse 87 96 Resp 30 29 B/P (MAP) 187/91 Pulse Ox 94 95 93 O2 Delivery Room Air Room Air Room Air Capillary Refill : Less Than 3 Seconds ECG Comment Sinus rhythm, 88 bpm, QRS duration 94 MS, QTc 407 MS Departure Communication (PCP) Reviewed old previous ER visits, patient records, lab work, testing. History of pneumonia. History of COPD, stroke with right-sided deficit according to patient. Patient with a low-grade temp. Took 2 Tylenol before arrival. Slightly tachycardic. Sepsis protocol was initiated. Concerning for pneumonia secondary to increasing cough, left-sided chest pain. History of COPD. Subtle wheezing. Differential diagnosis pneumonia, COPD exacerbation, viral syndrome, ACS. Patient was given IV Solu-Medrol and DuoNeb breathing treatment with improvement. He was slightly tachypneic at 25. 95% on room air. Denies oxygen at home and does have an inhaler at home that he has been using. Due to the left-sided chest pain cardiac work-up was ordered with chest x-ray. COVID influenza was negative. Chest x-ray was negative for pneumonia. Urinalysis was negative for infection. CBC showed slightly elevated white blood count. CMP otherwise unremarkable. Patient was given a liter of fluid. Improvement of fever. Cardiac work-up unremarkable with normal troponin and BNP. EKG without evidence of ST elevation or depression. Chest pain appears to occur with the cough. After the breathing treatment patient coughing and chest pain improved. Suspect underlying COPD exacerbation. Possible underlying viral infection versus developing pneumonia that is not seen on chest xray. Due to his history of COPD patient will be discharged with azithromycin and short burst steroids. Refilled his albuterol inhaler. Continue monitoring symptoms at home. Recommend following up with your primary care physician 2 to 3 days for reevaluation. If any worsening chest pain, cough to return back to ED. Impression Primary Impression: COPD exacerbation Disposition: 01 HOME, SELF-CARE Condition: Stable Departure-Patient Inst. Decision time for Depature: 19:55 Referrals: ASHOK SHAW MD (PCP/Family) Primary Care Physician Patient Instructions: COPD Exacerbation, Adult ED Scripts Albuterol Sulfate (VENTOLIN HFA) 1 Puff Puff 2 PUFF INH Q4H PRN for SHORTNESS OF BREATH, #1 EA 1 PUFF = 90 MCG Prov: CASSIDY HE 06/21/22 Prednisone (Prednisone) 20 Mg Tab 40 MG PO DAILY for 4 Days, #8 TAB Prov: CASSIDY HE 06/21/22 Azithromycin (Azithromycin) 250 Mg Tablet 250 MG PO UD, #6 TAB TAKE 2 TABLETS ON DAY ONE THEN TAKE 1 TABLET DAILY FOR FOUR MORE DAYS Prov: CASSIDY HE 06/21/22 CASSIDY HE Jun 21, 2022 18:16
[2022-06-21 18:17] LABS: ALKALINE PHOSPHATASE 72 U/L (40-136); CREATININE SERUM 0.91 MG/DL (0.60-1.30); GFR ESTIMATED 86
[2022-06-21 18:18] LABS: BUN/CREATININE RATIO 11
[2022-06-21 18:20] LABS: ALANINE AMINOTRANSFERASE 22 U/L (0-55)
--- NOTE | 2022-06-21 18:33 | Diagnostic Imaging Report ---
INDICATION: Chest pain. Compared 04/11/2022 FINDINGS: The heart size within normal limits. There is no failure, effusion or pneumothorax. IMPRESSION: No acute appearing abnormality Dictated by: Dictated on workstation # [id number]
[2022-06-21 18:51] LABS: BILIRUBIN,URINE NEGATIVE (NEGATIVE); CLARITY,URINE CLEAR; COLOR,URINE YELLOW; GLUCOSE, URINE (UA) NEGATIVE (NEGATIVE); KETONES,URINE NEGATIVE (NEGATIVE); LEUKOCYTE ESTERASE ,URINE NEGATIVE (NEGATIVE); NITRITE,URINE NEGATIVE (NEGATIVE); PROTEIN,URINE 1+ (NEGATIVE)
[2022-06-21 19:00] LABS: BACTERIA,URINE TRACE /HPF; SQUAMOUS EPITHELIAL CELL,UR RARE /HPF; WBC,URINE RARE /HPF
[2022-06-21] MEDS ORDERED: methylPREDNISolone 125 MG (Solu-MEDROL) VIAL ONE (19:12)
[2022-06-21] MEDS ORDERED: RT-ALBUTEROL/IPRATROPIUM 3 ML (DUONEB) VIAL INH ONE (19:15)
[2022-06-21] MEDS ORDERED: methylPREDNISolone 125 MG (Solu-MEDROL) VIAL IVP ONE (19:15)
[2022-06-21] MEDS ORDERED: PRD20T PO (19:56)
[2022-06-21] MEDS ORDERED: RT-ALBUINH INH (19:56)
[2022-06-21] MEDS ORDERED: AZIT250T12 PO (19:56)
[2022-06-21 20:04] VITALS: BP 187/91
== END 2022-06-21 20:04 | disposition home or self-care (01) ==
LOC: EDUNIT# 17:08 → ER 17:11
DX: J44.9 Chronic obstructive pulmonary disease, unspecified (principal); R00.0 Tachycardia, unspecified; Z86.16 Personal history of COVID-19; Z79.51 Long term (current) use of inhaled steroids; Z20.822 Contact with and (suspected) exposure to COVID-19
CPT/HCPCS: 36415; 71045; 80053; 81000; 83605; 83880; 84484; 85025; 85610; 85730; 87040; 87077; 87088; 87186; 87636; 93005; 94640; 94664